=== PATIENT | female | born 1975 ===

== ENCOUNTER 2017-12-05 20:06 | Emergency (ER) | payer OTHER ==
[2017-12-05 22:46] VITALS: O2SAT 98
--- NOTE | 2017-12-06 02:37 | ED PDOC ---
Lower Extremity Pain/Injury Time Seen by Provider: 12/06/17 02:00 Chief Complaint (Nursing): Lower Extremity Problem/Injury Chief Complaint (Provider): right leg pain History Per: Patient History/Exam Limitations: no limitations Onset/Duration Of Symptoms: Days (2 weeks), Waxing/Waning Current Symptoms Are (Timing): Still Present Additional Complaint(s): 41 y/o female presents for evaluation of intermittent right leg pain x 2 weeks, worse in the last 2 days. Patient states she will randomly feel sharp pains from buttock down to left thigh. Pain described as "burning". Denies fever, nausea/vomiting, chest pain, shortness of breath, palpitations, numbness/weakne ss/swelling lower extremities, known trauma, recent travel, OCP use. Patient was evaluated at Urgent Care and advised to come to the ED for further evaluation Past Medical History Reviewed: Historical Data, Nursing Documentation, Vital Signs Vital Signs: Last Vital Signs Temp 98.2 F 12/05/17 22:41 Pulse 74 12/05/17 22:41 Resp 16 12/05/17 22:41 BP 137/93 H 12/05/17 22:41 Pulse Ox 98 12/05/17 22:41 - Medical History PMH: No Chronic Diseases - Surgical History Surgical History: No Surg Hx - Family History Family History: States: No Known Family Hx - Living Arrangements Living Arrangements: With Family - Social History Current smoker - smoking cessation education provided: No Alcohol: None Drugs: Denies - Allergies Allergies/Adverse Reactions: Allergies Allergy/AdvReac Type Severity Reaction Status Date / Time No Known Allergies Allergy Verified 12/05/17 22:41 Wells Criteria for PE - Wells Criteria for Pulmonary Embolism Clinical Signs and Symptoms of DVT: No P.E is #1 Diagnosis, or Equally Likely: No Heart Rate >100: No Immobilization at least 3 days;Surgery previous 4 weeks: No Previous, objectively diagnosed PE or DVT: No Hemoptysis: No Malignancy w/treatment within 6 months, or palliative: No Total Score: 0 Review of Systems ROS Statement: Except As Marked, All Systems Reviewed And Found Negative Musculoskeletal: Positive for: Leg Pain (right) Physical Exam - Reviewed Nursing Documentation Reviewed: Yes Vital Signs Reviewed: Yes - Physical Exam Appears: Positive for: Well, Non-toxic, No Acute Distress Head Exam: Positive for: ATRAUMATIC, NORMAL INSPECTION, NORMOCEPHALIC Pulses-Dorsalis Pedis (L): 2+ Pulses-Dorsalis Pedis (R): 2+ Pulses-Post. Tibialis (L): 2+ Pulses-Post. Tibialis (R): 2+ Extremity: Positive for: Normal ROM, Tenderness (left gluteal midline tenderne ss, left posterior/lateral thigh). Negative for: Pedal Edema, Calf Tenderness (Neg Erna's b/l) Neurologic/Psych: Positive for: Alert, Oriented (x3) - Laboratory Results Result Diagrams: 12/06/17 02:40 12/06/17 02:40 - ECG O2 Sat by Pulse Oximetry: 98 - Progress ED Course And Treament: labs, IV toradol, PO flexeril On re-eval, patient states pain improved but still present IV morphine ordered U/S RLE ordered Disposition - Clinical Impression Clinical Impression: Right leg pain - Patient ED Disposition Is Patient to be Admitted: No - Disposition Disposition Time: 05:00 Condition: STABLE Patient Signed Over To: Ema Arevalo Handoff Comments: pending u/s
[2017-12-06 03:07] LABS: BASO % 0.3 % (0.0-2.0); EOS # 0.1 K/uL (0.0-0.7); EOS % 1.5 % (0.0-4.0); HEMOGLOBIN 11.9 g/dL (12.0-16.0); LYMPH # 2.5 K/uL (1.0-4.3); MEAN CELL VOLUME 78.3 fl (81.0-99.0); MEAN CORPUSCULAR HEMOGLOBIN 26.4 pg (27.0-31.0); MEAN CORPUSCULAR HGB CONC 33.7 g/dL (33.0-37.0); MEAN PLATELET VOLUME 8.7 fl (7.2-11.7); MONO # 0.7 K/uL (0.0-0.8); MONO % 7.7 % (0.0-10.0); NEUT # 5.3 K/uL (1.8-7.0); NEUT % 61.5 % (50.0-75.0); NRBC % 0.1 % (0.0-0.0); RBC 4.51 Mil/uL (3.80-5.20); RED CELL DISTRIBUTION WIDTH 15.6 % (11.5-14.5); WHITE BLOOD COUNT 8.6 K/uL (4.8-10.8)
[2017-12-06 03:11] LABS: ALB/GLOB RATIO 1.1 (1.0-2.1); ALBUMIN 4.2 g/dL (3.5-5.0); ALT/SGPT 29 U/L (9-52); AST/SGOT 27 U/L (14-36); BLOOD UREA NITROGEN 10 mg/dl (7-17); CALCIUM 9.3 mg/dL (8.4-10.2); GFR NON-AFRICAN AMERICAN > 60
--- NOTE | 2017-12-06 05:20 | ED PDOC ---
- Laboratory Results Result Diagrams: 12/06/17 02:40 12/06/17 02:40 - ECG O2 Sat by Pulse Oximetry: 98 (RA) Pulse Ox Interpretation: Normal Medical Decision Making Medical Decision Makin Patient endorsed to me by Maggi Wilson PA-C pending US. ----- Scribe Attestation: Documented by Kriss Jackson, acting as a scribe for Ema Arevalo MD. Provider Scribe Attestation: All medical record entries made by the Scribe were at my direction and personally dictated by me. I have reviewed the chart and agree that the record accurately reflects my personal performance of the history, physical exam, medical decision making, and the department course for this patient. I have also personally directed, reviewed, and agree with the discharge instructions and disposition. Disposition - Clinical Impression Clinical Impression: Right leg pain - POA Present On Arrival: None - Disposition Referrals: Xochilt Paul MD [Family Provider] - Disposition: Transfer of Care Disposition Time: 07:00 Condition: STABLE Instructions: Muscle and Bone Pain (DC) Forms: [employer] ([employer]), [facility] ED School/Work Excuse Patient Signed Over To: Marisol Nash
--- NOTE | 2017-12-06 09:44 | ED PDOC ---
- Laboratory Results Result Diagrams: 12/06/17 02:40 12/06/17 02:40 - ECG O2 Sat by Pulse Oximetry: 98 Medical Decision Making Medical Decision Making: received patient from Dr. Arevalo. Patient's duplex scan is normal. Will discharge. Disposition Doctor Will See Patient In The: Office Counseled Patient/Family Regarding: Diagnosis, Need For Followup - Clinical Impression Clinical Impression: Right leg pain - POA Present On Arrival: None - Disposition Referrals: Xochilt Paul MD [Family Provider] - Disposition: Routine/Home Disposition Time: 09:15 Condition: STABLE Instructions: Muscle and Bone Pain (DC) Forms: [employer] ([place]ese), [facility] ED School/Work Excuse
[2017-12-06 10:55] VITALS: BP 126/76; PULSE 76; RESP 19
[2017-12-06 11:35] VITALS: TEMP 97
--- NOTE | 2017-12-06 12:00 | US ---
Date of service: 12/06/2017 PROCEDURE: Right lower extremity venous duplex Doppler. HISTORY: pain right LE COMPARISON: None available. TECHNIQUE: Common femoral, superficial femoral, popliteal and posterior tibial veins were evaluated. Flow was assessed with color Doppler, compressibility, assessment of phasic flow and augmentation response. FINDINGS: COMMON FEMORAL VEIN: Unremarkable. SUPERFICIAL FEMORAL VEIN: Unremarkable. POPLITEAL VEIN: Unremarkable. POSTERIOR TIBIAL VEIN: Unremarkable. OTHER FINDINGS: None. IMPRESSION: No evidence of deep venous thrombosis in the right lower extremity.
== END 2017-12-06 10:23 | disposition home or self-care (01) ==
LOC: H.ER 20:06
DX: M79.604 Pain in right leg (principal)
CPT/HCPCS: 80053; 81025; 85025; 85378; 93971; 96374; 96375; 99284; J1885; J2270